=== PATIENT | male | born 1985 | race African-American/Black ===

== ENCOUNTER 2016-07-28 13:19 | Emergency (ER) | payer OTHER ==
[~2016-07-28] VITALS: Ht 172.7 cm; Wt 77.0 kg
[~2016-07-28 13:19] MED LIST: PEPCID20 MG PO; PREDNISONE20 MG PO; PROAIR RESPICL90 MCG IH; SYMBICORT60 INHALAT IH; TYLENOL ARTHRI650 MG PO
[2016-07-28 13:50] LABS: ADD MIUA? YES; BILIRUBIN NEGATIVE; BLOOD SMALL; COLOR YELLOW ((YELLOW)); GLUCOSE (STRIP) NEGATIVE; KETONES NEGATIVE; LEUKOCYTES NEGATIVE; NITRITE NEGATIVE; PROTEIN (STRIP) 30; SPECIFIC GRAVITY 1.023 (1.000-1.030); UROBILINOGEN 0.2 MG/DL (0.2-1.0)
[2016-07-28 14:20] LABS: BACTERIA RARE; CASTS PRESENT /LPF; CRYSTALS NONE SEEN; EPITHELIAL CELLS RARE; FINE GRANULAR CASTS RARE /LPF; HYALINE CASTS RARE /LPF; MUCUS 3+; UCUL ADDED? NO; WHITE BLOOD CELLS NONE SEEN /HPF (0-5)
[2016-07-28 15:28] LABS: HEMATOCRIT 36.8 % (38.0-50.0); MCH 27.9 PG (29.0-34.0); MCHC 34.2 G/DL (30.0-36.0); MCV 81.4 FL (86-99); MEAN PLAT.VOLUME 10.4 uM^3 (9.0-12.4); PLATELET COUNT 363 K/uL (156-360); RBC DIS.WIDTH-CV 12.4 % (11.8-14.6); RBC DIS.WIDTH-SD 35.5 % (39-53); RED BLOOD COUNT 4.52 M/uL (4.00-5.50); WHITE BLOOD COUNT 5.1 K/uL (4.1-10.2)
[2016-07-28 15:38] LABS: CHLORIDE 110 mEq/L (99-109); POTASSIUM 3.6 mEq/L (3.7-5.4); SODIUM 141 mEq/L (136-147)
[2016-07-28 15:40] LABS: GLUCOSE 91 mg/dL (70-99)
[2016-07-28 15:42] LABS: ANION GAP 9 MEQ/L (2-14); TOTAL BILIRUBIN 0.2 mg/dL (0.0-1.0)
[2016-07-28 15:44] LABS: ALKALINE PHOSPHATASE 64 IU/L (3-129); GFR ESTIMATE (CALCULATED) > 59 mL/min/
[2016-07-28 15:45] LABS: UREA NITROGEN (BUN) 12 mg/dL (9-23)
[2016-07-28] MEDS ORDERED: MONDOXYNE NL100 MG PO (16:23)
[2016-07-28] MEDS ORDERED: PERCOCET 5/31 TABLET PO (16:33)
[2016-07-28 17:00] VITALS: BP 166/101
== END 2016-07-28 17:35 ==
LOC: EME 13:19
PROVIDERS: Emergency Medicine
DX: N20.0 Calculus of kidney (principal); N45.1 Epididymitis; J45.909 Unspecified asthma, uncomplicated; Z87.442 Personal history of urinary calculi; Z87.891 Personal history of nicotine dependence
CPT/HCPCS: 74176; 76870; 80053; 81003; 85027; 99281; 99285; J0696; J1885; J2270; J2405; J7030